=== PATIENT | female | born 1950 ===

== ENCOUNTER 2017-11-07 05:50 | Day surgery (SDC) | payer OTHER | END 2017-11-07 09:45 | disposition home or self-care (01) | LOC: AMB-ENDOS 05:50 → CIR.AMB 09:15 → AMB-ENDOS 09:15 | DX: K57.32 Diverticulitis of large intestine without perforation or abscess without bleeding (principal); K64.1 Second degree hemorrhoids ==

== ENCOUNTER 2020-11-24 05:45 | Day surgery (SDC) | payer OTHER | END 2020-11-24 09:35 | disposition home or self-care (01) | LOC: AMB-ENDOS 05:45 | PROVIDERS: ATTEND Colon & Rectal Surgery | DX: K57.32 Diverticulitis of large intestine without perforation or abscess without bleeding (principal); K64.1 Second degree hemorrhoids; Z20.822 Contact with and (suspected) exposure to COVID-19 ==